=== PATIENT | female | born 2000 | race Two or more races ===

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

== ENCOUNTER 2025-01-09 09:54 | Inpatient (IN) | payer OTHER ==
[~2025-01-09] VITALS: Ht 157.5 cm; Wt 77.1 kg
[2025-01-09] VITALS (10 sets, daily range): BP systolic 115–141; BP diastolic 51–98
[2025-01-09] MEDS ORDERED: PRENATAL + DHA1 EAC1 PO (10:15)
[2025-01-09] MEDS ORDERED: AMPICILLIN SODIUM 2,000 MG VIAL IV ONE (10:15)
[2025-01-09] MEDS ORDERED: RINGERS SOLUTION,LACTATED 1,000 ML IV SCH (10:30)
[2025-01-09 10:58] LABS: BASO % 0.3 % (0.1-1.2); EOS # 0.08 (0.04-0.54); EOS % 0.6 % (0.7-7.0); LYMPH # 1.64 (1.18-3.74); LYMPH % 12.0 % (19.3-53.1); MEAN PLATELET VOLUME 10.50 fl (9.4-12.4); MONO # 0.85 (0.24-0.82); MONO % 6.2 % (4.7-12.5); NEUT # 10.96 (1.56-6.13); NEUT % 80.4 % (34.0-71.1); RED CELL DISTRIBUTION WIDTH 13.9 % (11.6-14.4)
[2025-01-09 11:20] LABS: INR < 0.93
[2025-01-09 11:35] LABS: ALT/SGPT 19.0 U/L (12-78); AST/SGOT 18.0 U/L (15-37); BILIRUBIN TOTAL 0.29 mg/dL (0.3-1.2); BUN CREA RATIO 14.0 (7.0-25.0); CREATININE SERUM 0.63 mg/dL (0.55-1.02); GFR 118.16; GLOBULINA 3.5 G/DL (2.4-3.5); GLUCOSE FASTING 81.0 mg/dL (65-100); OSMOLALITY SERUM 281.0 MOSM/KG (275-295)
[2025-01-09] MEDS ORDERED: AMPICILLIN SODIUM 1,000 MG VIAL IV SCH (13:00)
[2025-01-09] MEDS ORDERED: OXYTOCIN 500 ML IV ONE (13:15)
[2025-01-09] MEDS ORDERED: OXYTOCIN 20 UNITS/1000ML RL PIGGYBAG IV ONE (13:54)
[2025-01-09] MEDS ORDERED: CHLORHEXIDINE GLUCONATE 120 ML BOTTLE TOP ONE ×2 (13:54→16:00)
[2025-01-09] MEDS ORDERED: LIDOCAINE HCL 1% 10ML VIAL ONE (13:54)
[2025-01-09] MEDS ORDERED: ERYTHROMYCIN BASE OPHT 1GM EACH TUBE OP ONE ×2 (13:54→16:00)
[2025-01-09] MEDS ORDERED: MORPHINE SULFATE 4 MG/ML CARTRIDGE IV STA (14:01)
[2025-01-09] MEDS ORDERED: NALOXONE HCL 0.4 MG/ML AMPUL ONE (14:54)
[2025-01-09] MEDS ORDERED: ACETAMINOPHEN WITH CODEINE 1 UDTAB TABLET PO PRN (15:45)
[2025-01-09] MEDS ORDERED: OXYTOCIN 1,000 ML IV SCH (15:45)
[2025-01-09] MEDS ORDERED: LIDOCAINE HCL 1% 10ML VIAL IJ ONE (16:00)
[2025-01-09] MEDS ORDERED: NALOXONE HCL 0.4 MG/ML AMPUL IV ONE (16:00)
[2025-01-10 00:47] VITALS: BP 110/62
[2025-01-10 08:12] VITALS: BP 106/66
[2025-01-10 16:00] VITALS: BP 123/80
[2025-01-11 02:48] VITALS: BP 104/71
[2025-01-11 08:00] VITALS: BP 114/74
== END 2025-01-11 13:40 | disposition home or self-care (01) | DRG 807 ==
LOC: LDR 09:54 → OB/GYN 15:57
PROVIDERS: ADMIT Obstetrics & Gynecology; ATTEND Obstetrics & Gynecology
PROC: 10E0XZZ Delivery of Products of Conception, External Approach (ICD-10-PCS; principal; 2025-01-09)
PROC: 4A1HXCZ Monitoring of Products of Conception, Cardiac Rate, External Approach (ICD-10-PCS; 2025-01-09)
DX: O80 Encounter for full-term uncomplicated delivery (principal); Z37.0 Single live birth; Z3A.39 39 weeks gestation of pregnancy